=== PATIENT | male | born 1995 | race Caucasian/White ===

== ENCOUNTER 2019-12-10 | Emergency (ER) | payer BC ==
[~2019-12-10] MED LIST: CEPHALEXIN500 MG OR; NO
[2019-12-10] MEDS ORDERED: FLONASE AL50 MCG/ACT (20:55)
[2019-12-10] MEDS ORDERED: NAPROXEN500 MG PO (20:55)
== END 2019-12-10 21:00 | disposition home or self-care (01) | DRG 125 ==
DX: S00.12XA Contusion of left eyelid and periocular area, initial encounter (principal); S00.33XA Contusion of nose, initial encounter; J34.89 Other specified disorders of nose and nasal sinuses; Y04.8XXA Assault by other bodily force, initial encounter; Y92.89 Other specified places as the place of occurrence of the external cause